=== PATIENT | male | born 1950 | race Caucasian/White ===

== ENCOUNTER 2019-01-10 10:19 | Emergency (ER) | payer OTHER ==
[~2019-01-10] VITALS: Ht 162.6 cm; Wt 71.9 kg
[2019-01-10 10:26] VITALS: Ht 162.6 cm; Wt 71.9 kg
--- NOTE | 2019-01-10 11:32 | ERD ---
ER Documentation Chief Complaint Chief Complaint multiple complaints, c/o insomnia and weight loss, sent by pmd for admissio HPI This is a 68-year-old man referred here by medical clinic for 5 days of insomnia, tremors, and suspected weight loss. The patient's family members are at the bedside and their main complaint is insomnia times 5 days. The patient was seen and evaluated thoroughly at [facility] emergency department just 2 days ago and a full workup there including labs and UA was unremarkable. Son and [id number] who are at the bedside state for the last 6 months (at least) the patient has had left upper and lower extremity weakness and a mild resting tremor to the left hand. The patient is generally forgetful and has signs of early dementia. He has had no fevers or chills, no vomiting, no chest pain or shortness of breath, no headache or blurry vision. ROS All systems reviewed and are negative except as per history of present illness. Medications Home Meds Reported Medications [Unkown Htn] No Conflict Check 01/10/19 Allergies Allergies: Coded Allergies: No Known Allergy (Unverified , 01/10/19) PMhx/Soc History of Surgery: Yes (LEFT HIP SX) Anesthesia Reaction: No Hx Neurological Disorder: No Hx Respiratory Disorders: Yes (HTN) Hx Cardiac Disorders: No Hx Psychiatric Problems: No Hx Miscellaneous Medical Probl: Yes (DM) Hx Alcohol Use: No Hx Substance Use: No Hx Tobacco Use: No Smoking Status: Never smoker Physical Exam Vitals Vital Signs Date Temp Pulse Resp B/P (MAP) Pulse Ox O2 O2 Flow FiO2 Time Delivery Rate 01/10/19 97.0 71 18 168/82 99 10:26 (110) Physical Exam GENERAL: Well-developed, well-nourished, well-hydrated, in no apparent distress, looks nontoxic in appearance HEENT: Moist mucous membranes, pink conjunctiva, no cervical spine tenderness or step-off deformities, no goiter, no jaundice or icterus, extraocular movements intact without pain. No submandibular induration, and no pharyngeal erythema NEURO: Alert and oriented 3, cranial nerves II through XII intact bilaterally, pupils equal round reactive to light, left upper and lower extremity paresis with left hand and toe contractures consistent with old stroke. CARDIAC: Regular rate and rhythm, no murmurs rubs or gallops LUNGS: Clear bilaterally no wheezing crackles or stridor ABDOMEN: Soft nontender, no guarding, no rigidity, no rebound, no psoas sign no obturator sign. SKIN: Warm and dry to touch, no abrasions, contusions, or hematomas, no lacerations, no ecchymosis, no target lesions, and without ulcers EXTREMITIES: No clubbing cyanosis or edema, calves are bilaterally symmetrical, no Homans sign, no popliteal cord sign. Distal pulses equal and bilateral PSYCH: Normal affect without agitation or irritability Procedures/MDM I spoke to the patient's health insurance directed physician ([employer] Dr. Guardado [phone]) and discussed the patient and his symptoms. Patient has chronic and subacute, nonemergent symptoms all of which can be managed as an outpatient with imaging, laboratory testing, and specialist consultations such as neurology all performed as an outpatient. Patient has no obstacles or barriers to outpatient management so I deferred treatment of insomnia to Dr. Guardado, because it seems she was unhappy that [facility] emergency department prescribed temazepam for insomnia. I found no acute symptoms on HPI or exam findings to warrant further ED intervention or imaging (besides the CT scan of the head), Especially because he had a fairly thorough workup just 2 days ago at [facility]. I spoke to the patient's family members were at the bedside regarding this plan of care, and they were in agreement. I did obtain a CT scan of the brain to help facilitate management, no acute bleed mass or shift was noted. Differential diagnoses considered, included but not limited to acute coronary syndrome, pulmonary embolism, aortic dissection, abdominal aortic aneurysm, sepsis, stroke, meningitis, encephalitis, pneumonia, appendicitis, cholecystitis, bowel obstruction, pyelonephritis, nephrolithiasis, cystitis, as well as metabolic, hematologic, and electrolyte abnormalities. As well as abscess, cellulitis, fractures, and dislocations. Patient feels much better at this time, and vital signs are normal, symptoms have improved. I did give strict instructions to return to the ED if symptoms continue or worsen, patient will otherwise follow-up with primary care physician. Patient understood instructions and agreed to plan. Disclaimer: Inadvertent spelling and grammatical errors are likely due to EHR/dictation software use and do not reflect on the overall quality of patient care. Also, please note that the electronic time recorded on this note does not necessarily reflect the actual time of the patient encounter. Departure Diagnosis: Primary Impression: Insomnia Insomnia type: primary Qualified Codes: F51.01 - Primary insomnia Condition: PRISCILA Conteh MD Jan 10, 2019 11:32
[2019-01-10] MEDS ORDERED: UNKOWN HTN (11:53)
[2019-01-10 13:26] VITALS: BP 155/78; PULSE 79; RESP 19
== END 2019-01-10 13:27 | disposition home or self-care (01) ==
LOC: E/R 10:19
DX: F51.01 Primary insomnia (principal); I10 Essential (primary) hypertension; E11.9 Type 2 diabetes mellitus without complications; R51 Headache
CPT/HCPCS: 70450